=== PATIENT | female | born 1950 | race Caucasian/White ===

== ENCOUNTER → 2019-04-30 10:32 | Outpatient (BNVA) | payer MEDICARE, OTHER, SELFPAY | PROVIDERS: Family Provider Nurse Practitioner; PCP Nurse Practitioner; Visit Provider Nurse Practitioner | DX: I10 Essential (primary) hypertension (principal); E03.8 Other specified hypothyroidism | CPT/HCPCS: 80053; 80061; 84443 ==

== ENCOUNTER → 2019-10-22 08:34 | Outpatient (BNVA) | payer MEDICARE, OTHER, SELFPAY | PROVIDERS: Family Provider Nurse Practitioner; PCP Nurse Practitioner; Visit Provider Nurse Practitioner | DX: E03.8 Other specified hypothyroidism (principal); I10 Essential (primary) hypertension | CPT/HCPCS: 80053; 80061; 84443 ==

== ENCOUNTER → 2020-03-18 08:32 | Outpatient (BNVA) | payer MEDICARE, OTHER, SELFPAY | PROVIDERS: Family Provider Nurse Practitioner; PCP Nurse Practitioner; Visit Provider Nurse Practitioner | DX: E66.09 Other obesity due to excess calories (principal); Z68.36 Body mass index [BMI] 36.0-36.9, adult; E03.8 Other specified hypothyroidism; I10 Essential (primary) hypertension | CPT/HCPCS: 80053; 80061; 84443 ==

== ENCOUNTER → 2020-09-12 09:51 | Outpatient (BNVA) | payer MEDICARE, OTHER, SELFPAY | PROVIDERS: Family Provider Nurse Practitioner; PCP Nurse Practitioner; Visit Provider Nurse Practitioner | DX: E03.8 Other specified hypothyroidism (principal); I10 Essential (primary) hypertension | CPT/HCPCS: 80053; 80061; 84443 ==

== ENCOUNTER → 2020-09-16 08:35 | Outpatient (BNVA) | payer MEDICARE, OTHER, SELFPAY | PROVIDERS: Family Provider Nurse Practitioner; PCP Nurse Practitioner; Visit Provider Nurse Practitioner | DX: I10 Essential (primary) hypertension (principal); E03.8 Other specified hypothyroidism; M54.5 Low back pain; M79.605 Pain in left leg; E66.9 Obesity, unspecified | CPT/HCPCS: 81000 ==

== ENCOUNTER → 2021-03-16 08:13 | Outpatient (BNVA) | payer MEDICARE, OTHER, SELFPAY | PROVIDERS: Family Provider Nurse Practitioner; PCP Nurse Practitioner; Visit Provider Nurse Practitioner | DX: I10 Essential (primary) hypertension (principal); E03.8 Other specified hypothyroidism | CPT/HCPCS: 80053; 80061; 84443 ==

== ENCOUNTER → 2021-09-01 08:56 | Outpatient (BNVA) | payer MEDICARE, OTHER, SELFPAY | PROVIDERS: Family Provider Nurse Practitioner; PCP Nurse Practitioner; Visit Provider Nurse Practitioner | DX: E03.8 Other specified hypothyroidism (principal); I10 Essential (primary) hypertension | CPT/HCPCS: 80053; 80061; 84443 ==

== ENCOUNTER → 2022-02-24 08:16 | Outpatient (BNVA) | payer MEDICARE, OTHER, SELFPAY | PROVIDERS: Family Provider Nurse Practitioner; PCP Nurse Practitioner; Visit Provider Nurse Practitioner | DX: E03.8 Other specified hypothyroidism (principal); I10 Essential (primary) hypertension | CPT/HCPCS: 80053; 80061; 84443 ==

== ENCOUNTER → 2022-08-24 08:43 | Outpatient (BNVA) | payer MEDICARE, OTHER, SELFPAY | PROVIDERS: Family Provider Nurse Practitioner; PCP Nurse Practitioner; Visit Provider Nurse Practitioner | DX: I10 Essential (primary) hypertension (principal); E03.8 Other specified hypothyroidism | CPT/HCPCS: 80053; 80061; 84443 ==

== ENCOUNTER → 2023-02-14 08:49 | Outpatient (BNVA) | payer MEDICARE, OTHER, SELFPAY | PROVIDERS: Family Provider Nurse Practitioner; PCP Nurse Practitioner; Visit Provider Nurse Practitioner | DX: I10 Essential (primary) hypertension (principal); E03.8 Other specified hypothyroidism | CPT/HCPCS: 80053; 80061; 84443 ==

== ENCOUNTER → 2023-08-01 10:10 | Outpatient (BNVA) | payer MEDICARE, OTHER, SELFPAY | PROVIDERS: Family Provider Nurse Practitioner; PCP Nurse Practitioner; Visit Provider Nurse Practitioner | DX: I10 Essential (primary) hypertension (principal); E03.8 Other specified hypothyroidism | CPT/HCPCS: 80053; 80061; 84443 ==

== ENCOUNTER 2023-10-13 10:22 | Emergency (ER) | payer MEDICARE, OTHER, SELFPAY ==
[2023-10-13 10:40] VITALS: BP 160/99; PULSE 66; RESP 18; TEMP 36.6; O2SAT 96; BMI 34.0
--- NOTE | 2023-10-13 11:05 | CT_ITS ---
WS: [id number] CT HEAD TECHNIQUE: Noncontrast CT of the head obtained from the skullbase to the vertex. CLINICAL INFORMATION: trauma COMPARISON: None. DLP: 1401.[address] scans at [facility] use at least one of these dose optimization techniques: automated e xposure control; mA and/or kV adjustment per patient size (includes targeted exams where dose is matc hed to clinical indication); or iterative reconstruction. FINDINGS: No evidence of intracranial hemorrhage or mass effect. Ventricular system and basal cisterns are daly nt. Moderate small vessel changes with moderate parenchymal volume loss. No extra-axial fluid collect ions. No evidence of mass or mass effect. Vascular calcification. Few chronic lacunar infarcts in the RIGHT basal ganglia. Paranasal sinuses and mastoid air cells are well aerated. .Normal visualized soft tissues. Scleral ba nding RIGHT globe. CT/CT head wo con* [id number] IMPRESSION: 1. No evidence of intracranial hemorrhage or mass effect. 2. Moderate small vessel changes with moderate parenchymal volume loss worse i n the frontal lobes. 3. Few chronic lacunar infarcts in the RIGHT basal ganglia. 4. Vascular calcification. 5. No acute intracranial findings.
--- NOTE | 2023-10-13 11:06 | XR_ITS ---
WS: [id number] Exam: XR chest 1V portable [id number] Date/Time of Exam: 10/13/2023 11:11 AM Reason For Exam: dyspnea/cough The lungs are clear and fully expanded. Cardiomediastinal silhouette is unremarkable for technique. N o pleural effusions. Bony structures are intact. XR/XR chest 1V portable [id number] IMPRESSION: 1. No acute cardiopulmonary finding.
--- NOTE | 2023-10-13 11:08 | PC.PHAR ---
PT HAS [facility] AND GETS MEDS BY MAIL. PT DOES KNOW WHAT SHE TAKES.
--- NOTE | 2023-10-13 11:09 | CT_ITS ---
WS: [id number] CT CERVICAL TRAUMA TECHNIQUE: Noncontrast CT of the cervical spine with coronal and sagittal reformatted images. CLINICAL INFORMATION: trauma COMPARISON: None. DLP: 1401.[address] scans at [facility] use at least one of these dose optimization techniques: automated e xposure control; mA and/or kV adjustment per patient size (includes targeted exams where dose is matc hed to clinical indication); or iterative reconstruction. FINDINGS: Straightening of the normal cervical lordosis. Normal craniocervical junction. Normal C1-C2 articulat ion. Dens is normal in appearance. Normal occipital condyles. No high-grade spinal canal narrowing. N ormal C1 ring. No evidence of acute fracture or dislocation. Small disc osteophyte complex at C2-C3 a nd C3-C4. Mild central canal stenosis C3-C4. Normal prevertebral soft tissues. Multinodular thyroid. Largest nodule RIGHT thyroid measures 11 mm. Carotid bulb calcification. Mastoids air cells are well aerated. CT/CT cervical spin wo con* [id number] IMPRESSION: No evidence of acute fracture or dislocation.
[2023-10-13 11:21] VITALS: BP 160/99; PULSE 66; RESP 18; TEMP 36.6; O2SAT 96
--- NOTE | 2023-10-13 11:21 | ED_ITS ---
HPI - Weakness 2 General: Chief complaint: Weakness Stated complaint: fall, doctor referral Time Seen by Provider: 10/13/23 11:05 Source: patient Mode of arrival: ambulatory History of Present Illness: 72-year-old female With dizziness and we akness presents to the emergency room after falling approximately 1 week ago. Patient was outside watering her alvarez and states that she simply passed out. She has an abrasion on the right lateral forehead and is complaining of some discomfort to her left wrist. She reports stumbling while walking dizziness with some slight blurriness of her vision. She had no vomiting after the episode. She is complaining of some headache generally feeling groggy and some pain on the right side of her neck A few months prior she had a similar syncopal episode. She has a history of hypertension no history of any known coronary artery disease no significant strokes in the past. MD Complaint: generalized weakness Onset (ago): week(s) (1) Duration: constant Severity: moderate Quality: aching Relieving factors: none Exacerbating factors: none Associated symptoms: Reports headache(s); Denies chest pain, chills, confusion, melena, decreased appetite, diaphoresis, dysuria, easy bruising, fever(s), myalgias, nausea, rash, short of breath, syncope or vomiting Review of Systems 2 Const: Denies: fever(s), chills or diaphoresis Card: Denies: chest pain or syncope Resp: Denies: dyspnea GI: Denies: abdominal pain, nausea, vomiting or melena : Denies: dysuria, urinary frequency or urinary urgency Musc: Reports: neck pain; Denies: back pain Skin/Breast: Denies: rash Neuro: Reports: headache(s) and difficulty walking; Denies: confusion Kai/Lymph: Denies: easy bruising PFSH ED 2 PFSH: Medical History Enrolled in chronic care management Obesity (BMI 30-39.9) 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 Adult onset hypothyroidism Essential (primary) hypertension Surgical History History of section History of cataract surgery 4560-8062 History of retinal detachment right 2004 Family History Father Heart disease Social History Smoking and tobacco/nicotine status: never used tobacco/nicotine Second hand smoke exposure: No Alcohol intake: never Substance/Drug Use: never Adopted: No Caregiver/support person: No Lives independently: Yes Household members: none Housing: House Marital status: / service: No Current occupational status: retired Do you think of yourself as: Straight/Heterosexual Current gender identity: Female Physical Exam 2 Const: GENERAL APPEARANCE: cooperative and comfortable O RIENTATION/CONSCIOUSNESS: Yes awake, Yes oriented to person, Yes oriented to place and Yes oriented to time HENMT: COMMON NORMALS: normocephalic, atraumatic and hearing grossly normal bilaterally HEAD & SCALP: normocephalic and atraumatic Resp: COMMON NORMALS: normal respiratory effort, No retractions, No use of accessory muscles and clear to auscultation bilaterally AUSCULTATION: clear to auscultation bilaterally Cardio: COMMON NORMALS: regular rate, regular rhythm and No murmurs present (Cardio) RATE: regular rate RHYTHM: regular rhythm GI: COMMON NORMALS: Soft to palpation and No hepatosplenomegaly present A USCULTATION: Yes normoactive bowel sounds PALPATION: Yes Soft to palpation, No Tenderness to palpation present (GI), No Guarding due to palpation present (GI) and Yes No hepatosplenomegaly present Extremity: COMMON NORMALS: normal to inspection, capillary refill normal, no clubbing, cyanosis or edema, no calf tenderness and no pedal edema Neuro: SENSORIUM/ORIENTATION: Yes oriented to person, Yes oriented to place and Yes oriented to time Skin: COMMON NORMALS: no rashes or lesions noted GENERAL SKIN EXAM: no rashes or lesions noted Course 2 Vital Signs: Vital signs: Vital Signs Temperature 97.9 F 10/13/23 11:21 Pulse Rate 68 10/13/23 13:36 Respiratory Rate 18 10/13/23 13:36 Blood Pressure 158/94 10/13/23 13:36 Pulse Oximetry 94 10/13/23 13:36 Oxygen Delivery Me thod Room Air 10/13/23 11:21 MDM - Weakness Medical Decision Making Patient fell a week ago. She has a little drooping of her right I have a do believe that it is more functional tried and present for some time and may have been worsened by her fall she has been bruising above that I. The rest of her facial muscles are all symmetrical. At most send NIH score evaluation I can give her a 1 for ataxia. I think it may be related to postconcussive syndrome rather than a new stroke. She does have a pretty impressive amount of frontal lobe atrophy. Reviewed your case with Dr. Hutson she recommends in a case like this getting an EEG and having them follow-up with her. Additionally we will get an MRI of the head with and without contrast and echocardiogram and carotid to further evaluate her syncopal episodes. Reviewed findings with the patient and family. Return if she has further problems. Medical Records I reviewed the patient's medical records. Lab Data I reviewed the patient's lab results. 10/13/23 11:35 10/13/23 11:[address] 10/13/23 11:05 IMPRESSION: 1. No evidence of intracranial hemorrhage or mass effect. 2. Moderate small vessel changes with moderate parenchymal volume loss worse in the frontal lobes. 3. Few chronic lacunar infarcts in the RIGHT basal ganglia. 4. Vascular calcification. 5. No acute intracranial findings. Chest X-Ray 10/13/23 11:06 IMPRESSION: 1. No acute cardiopulmonary finding. Cervical Spine CT 10/13/23 11:09 IMPRESSION: No evidence of acute fracture or dislocation. Hand X-Ray 10/13/23 11:51 IMPRESSION: 1. No acute fracture. Mild degenerative changes. Wrist X-Ray 10/13/23 11:51 IMPRESSION: 1. No acute fracture. Laboratory Results WBC 5.32 10^3/uL (3.29-11.43) 10/13/23 11:35 RBC 4.30 10^6/uL (3.85-5.65) 10/13/23 11:35 Hgb 13.90 g/dL (11.27-16.99) 10/13/23 11:35 Hct 41.9 % (36-47) 10/13/23 11:35 MCV 97.4 fl (85-98) 10/13/23 11:35 MCH 32.3 pg (27-33) 10/13/23 11:35 MCHC 33.2 g/dL (30-55) 10/13/23 11:35 RDW 12.9 % (12.1-15.1) 10/13/23 11:35 Plt Count 226 10^3/cmm (157-399) 10/13/23 11:35 MPV 10.1 fL (7.4-10.4) 10/13/23 11:35 Neut % (Auto) 54.3 % 10/13/23 11:35 Lymph % (Auto) 32.3 % 10/13/23 11:35 [place] % (Auto) 8.8 % 10/13/23 11:35 Eos % (Auto) 3.6 % 10/13/23 11:35 Baso % (Auto) 0.8 % 10/13/23 11:35 Neut # (Auto) 2.89 10^3/uL (1.8-7.7) 10/13/23 11:35 Lymph # (Auto) 1.7 10^3/uL (0.8-4.8) 10/13/23 11:35 [place] # (Auto) 0.5 10^3/uL (0.2-0.9) 10/13/23 11:35 Eos # (Auto) 0.2 10^3/uL (0.0-0.8) 10/13/23 11:35 Baso # (Auto) 0.0 10^3/uL (0.0-0.1) 10/13/23 11:35 Nucleated RBC % (auto) 0 % 10/13/23 11:35 Nucleated RBCs # 0.0 /100WBC 10/13/23 11:35 Sodium 141 mmol/L (136-145) 10/13/23 11:35 Potassium 4.8 mmol/L (3.5-5.1) 10/13/23 11:35 Chloride 106 mmol/L (98-107) 10/13/23 11:35 Carbon Dioxide 27 mmol/L (22-29) 10/13/23 11:35 Anion Gap 12.8 (5-19) 10/13/23 11:35 BUN 20 mg/dL (8-23) 10/13/23 11:35 Creatinine 1.2 mg/dL (0.5-0.9) H 10/13/23 11:35 GFR Calculation Not Reportable 10/13/23 11:35 Glucose 88 mg/dL (65-115) 10/13/23 11:35 Calculated Osmolality 294 mOsm/kg (285-295) 10/13/23 11:35 Lactic Acid 0.9 mmol/L (0.5-2.2) 10/13/23 11:35 Calcium 8.8 mg/dL (8.5-10.5) 10/13/23 11:35 Total Bilirubin 0.5 mg/dL (0.15-1.2) 10/13/23 11:35 AST 17 U/L (0-32) 10/13/23 11:35 ALT 9 U/L (0-33) 10/13/23 11:35 Alkaline Phosphatase 97 U/L (35-105) 10/13/23 11:35 Total Protein 6.9 g/dL (6.6-8.7) 10/13/23 11:35 Albumin 3.2 g/dL (3.5-5.2) L 10/13/23 11:35 Globulin 3.7 g/dL (1.3-4.6) 10/13/23 11:35 Urine Color Yellow (Yellow) 10/13/23 12:49 Urine Appearance Clear (CLEAR) 10/13/23 12:49 Urine pH 6 (5-7) 10/13/23 12:49 Ur Specific [place] 1.010 (1.005-1.030) 10/13/23 12:49 Urine Protein Neg (Negative) 10/13/23 12:49 Urine Glucose (UA) Norm (Normal) 10/13/23 12:49 Urine Ketones Negative (Negative) 10/13/23 12:49 Urine Blood Neg (Negative) 10/13/23 12:49 Urine Nitrate Negative (Negative) 10/13/23 12:49 Urine Bilirubin Neg (Negative) 10/13/23 12:49 Urine Urobilinogen Norm mg/dL (Negative) 10/13/23 12:49 Ur Leukocyte Esterase Trace (Negative) H 10/13/23 12:49 Urine RBC None /hpf (0-2) 10/13/23 12:49 Urine WBC 0-4 /hpf (0-5) H 10/13/23 12:49 Ur Squamous Epith Cells None /hpf (0-5) 10/13/23 12:49 Ur Transition Epith Cell 0-4 /hpf 10/13/23 12:49 Amorphous Sediment Not Reportable 10/13/23 12:49 Urine Bacteria None /hpf (NONE) 10/13/23 12:49 Urine Mucus None /hpf 10/13/23 12:49 All radiology interpretation(s) finalized by discharge Discharge Plan Discharge Patient Disposition: Home Clinical Impression: Syncope, Fall, Dizziness Condition: Stable Prescriptions: New atorvastatin 40 mg tablet 40 mg PO DAILY Qty: 30 0RF No Action clonidine HCl 0.1 mg tablet 0.1 mg PO BID PRN (Reason: hypertensive emergency) Qty: 30 0RF amlodipine 5 mg tablet 5 mg PO DAILY 90 Days Qty: 90 1RF duloxetine [Cymbalta] 20 mg capsule,delayed release(DR/EC) 20 mg PO BID Qty: 180 1RF levothyroxine 50 mcg tablet 50 mcg PO DAILY 90 Days Qty: 90 1RF losartan 100 mg tablet 100 mg PO DAILY 90 Days Qty: 90 1RF Aspir-81 81 mg Tablet,Delayed Release (Dr/Ec) 81 mg PO DAILY Discharge Orders: Discharge ED (Routine); Ordered 10/13/23 Ordered By: Yordy Lopez Referrals: Lalit Benietz, WILLIAMSC [Primary Care Provider] - Discharge Diet: Usual diet Discharge Activity: Limit activity as instructed Patient Instructions: Opioid Safety, Pain Management Activity Restrictions/Additional Instructions: Thank you for choosing [facility] for your healthcare needs today. It is very important that you follow up as instructed or that you return to the Emergency Department should you have concerns or if your condition changes or worsens in any way. You were seen in the emergency room after a fall CT of your head shows chronic changes with no acute changes. Will set you up for an outpatient echocardiogram and carotid duplex additionally will set you up for an MRI of the head with and without contrast and follow-up with neurology. Recommend you continue taking baby aspirin daily we will also start you on atorvastatin 40 mg daily. Will set you up for follow-up with neurology. Coding Level of Care Code ED Disability Specialist for Vamshi Vasquez NIH stroke score NIHSS Level Of Consciousness - 1a: 0 Level Of Consciousness Questions - 1b: Both Correct Level Of Consciousness Commands - 1c: Both Correct Best Gaze - 2: Normal Visual [place] - 3: No Visual Loss Facial Palsy - 4: Normal Motor Arm Right - 5: No Drift Motor Arm Left - 5: No Drift Motor Leg Right - 6: No Drift Motor Leg Left - 6: No Drift Limb Ataxia - 7: Present In One Limb Sensory - 8: Normal Best Language - 9: No Aphasia Dysarthia - 10: Normal Extinction And Inattention - 11: 0 Score Total Score: 1
[2023-10-13 11:42] LABS: Basophils % 0.8 %; Eosinophils # 0.2 10^3/uL (0.0-0.8); Eosinophils % 3.6 %; Hematocrit 41.9 % (36-47); Lymphocytes # 1.7 10^3/uL (0.8-4.8); Lymphocytes % 32.3 %; Mean Corpuscular HGB Conc 33.2 g/dL (30-55); Mean Corpuscular Hemoglobin 32.3 pg (27-33); Mean Corpuscular Volume 97.4 fl (85-98); Mean Platelet Volume 10.1 fL (7.4-10.4); Monocytes # 0.5 10^3/uL (0.2-0.9); Monocytes % 8.8 %; Neutrophils # 2.89 10^3/uL (1.8-7.7); Neutrophils % 54.3 %; Nucleated Red Blood Cells % 0 %; Platelet Count 226 10^3/cmm (157-399); Red Cell Distribution Width 12.9 % (12.1-15.1); White Blood Count 5.32 10^3/uL (3.29-11.43)
--- NOTE | 2023-10-13 11:51 | XR_ITS ---
WS: [id number] Exam: XR wrist LT min 3V* [id number] Date/Time of Exam: 10/13/2023 11:52 AM Reason For Exam: trauma Comparison 10/13/2023. No fracture or dislocation. The joint is relatively well-maintained. Normal soft tissues. XR/XR wrist LT min 3V* [id number] IMPRESSION: 1. No acute fracture.
--- NOTE | 2023-10-13 11:51 | XR_ITS ---
WS: [id number] Exam: XR hand LT min 3V* [id number] Date/Time of Exam: 10/13/2023 11:52 AM Reason For Exam: trauma No acute fracture. Mild degenerative changes in the IP joints and CMC joint of the thumb. No soft tis keli foreign bodies. XR/XR hand LT min 3V* [id number] IMPRESSION: 1. No acute fracture. Mild degenerative changes.
[2023-10-13 11:58] LABS: Lactic Sepsis W/Reflex 0.9 mmol/L (0.5-2.2)
[2023-10-13 11:59] LABS: Alanine Aminotransferase 9 U/L (0-33); Albumin Level 3.2 g/dL (3.5-5.2); Alkaline Phosphatase 97 U/L (35-105); Anion Gap 12.8 (5-19); Aspartate Amino Transferase 17 U/L (0-32); Blood Urea Nitrogen 20 mg/dL (8-23); Calcium 8.8 mg/dL (8.5-10.5); Carbon Dioxide 27 mmol/L (22-29); Chloride 106 mmol/L (98-107); Globulin 3.7 g/dL (1.3-4.6); Glucose 88 mg/dL (65-115); Osmolality Calculated 294 mOsm/kg (285-295); Potassium 4.8 mmol/L (3.5-5.1); Sodium 141 mmol/L (136-145); Total Bilirubin 0.5 mg/dL (0.15-1.2); Total Protein 6.9 g/dL (6.6-8.7)
[2023-10-13 12:10] LABS: Creatinine Clr Calc Pharmacy 52.8862
[2023-10-13 13:06] LABS: Add Urine Microscopic? YES; Bilirubin Urine Neg (Negative); Blood Urine Neg (Negative); Glucose Urine UA Norm (Normal); Ketones Urine Negative (Negative); Leukocyte Esterase Urine Trace (Negative); Nitrate Urine Negative (Negative); Protein Urine Neg (Negative); Urine Appearance Clear (CLEAR); Urine Color Yellow (Yellow); Urobilinogen Urine Norm (Negative); pH Urine 6 (5-7)
[2023-10-13 13:16] LABS: Add Urine Culture? No; Transitional Epi Cells Urine 0-4 /hpf; WBC Urine 0-4 /hpf (0-5)
[2023-10-13 13:36] VITALS: BP 158/94; PULSE 68; RESP 18; O2SAT 94
== END 2023-10-13 13:24 | disposition home or self-care (01) ==
PROVIDERS: Emergency Provider Family Medicine; Family Provider Nurse Practitioner; PCP Nurse Practitioner
DX: R55 Syncope and collapse (principal); R42 Dizziness and giddiness; Z79.82 Long term (current) use of aspirin; I10 Essential (primary) hypertension
CPT/HCPCS: 36415; 70450; 71045; 72125; 73110; 73130; 80053; 81001; 83605; 85025; 99284

== ENCOUNTER 2023-11-02 07:30 | Outpatient (CLI) | payer MEDICARE, OTHER, SELFPAY ==
--- NOTE | 2023-11-02 07:14 | USCV_ITS ---
Judith Thomas Age: 72 Gender: F : 1950 Exam Date: 11/02/2023 07:39 Ordering Phys: Yordy Lopez DO Technologist: ERNESTO [place] [facility] [place]: Syncope Risk Factors: Previous Vascular Surgery: Right Brachial BP: / Left Brachial BP: / Right Left Velocity (cm/s) Spectral Plaque Velocity (cm/s) Spectral Plaque Syst/Diast Broadening Syst/Diast Broadening 72.90/ 14.90 Prox CCA 56.70 / 16.00 63.60/ 18.40 Mid CCA 71.60 / 21.60 81.50/ 25.80 Distal CCA 80.90 / 26.10 47.80/ 19.60 Prox ICA 41.10 / 13.60 54.40/ 23.40 Mid ICA 54.50 / 20.90 61.60/ 23.20 Distal ICA 73.50 / 28.40 100.00 ECA 73.50 0.80 ICA/CCA 0.90 Antegrade Vertebral Antegrade 19.70/ 7.00 cm/s 46.50/ 15.70 cm/s Tri Subclavian Tri 92.40 91.20 CONCLUSIONS Right ICA stenosis <50%. Mild atheromatous plaque right carotid bulb/ICA. Left ICA stenosis <50%. Mild atheromatous plaque left carotid bulb/ICA. Normal antegrade Doppler flow noted in the left vertebral artery. Normal antegrade Doppler flow noted in the right vertebral artery. Darrius Leslie MD (Electronically Signed) Final Date: 02 November 2023 08:55 S
== END 2023-11-02 07:31 | disposition home or self-care (01) ==
PROVIDERS: Family Provider Nurse Practitioner; PCP Nurse Practitioner; Visit Provider Family Medicine
DX: R55 Syncope and collapse (principal); I65.23 Occlusion and stenosis of bilateral carotid arteries
CPT/HCPCS: 93880

== ENCOUNTER 2023-11-04 14:10 | Outpatient (CLI) | payer MEDICARE, OTHER, SELFPAY ==
--- NOTE | 2023-11-04 15:15 | USCV_ITS ---
Judith Thomas Age: 72 Gender: F : 1950 Exam Date: 11/04/2023 14:57 Ordering Phys: Lalit Benitez Technologist: CT Exam Location: [facility] – [place] Indication: htn BP: / HR: Rhythm: Sinus Technical Quality: Adequate MEASUREMENTS (Male / Female) Normal Values FINDINGS Left Ventricle Normal left ventricular size, systolic function and wall thickness, with no regional wall motion abnormalities. Grade I/IV diastolic dysfunction (abnormal relaxation filling pattern), normal to mildly elevated filling pressures. Left ventricular ejection fraction is estimated at 60 %. Right Ventricle Normal right ventricular size and systolic function. Right Atrium The right atrium is normal in size. Left Atrium The left atrium is normal in size. Mitral Valve Structurally normal mitral valve without significant stenosis or prolapse. There is no mitral regurgitation. Aortic Valve Structurally normal trileaflet aortic valve. No aortic valve stenosis. Mild aortic valve regurgitation. Tricuspid Valve Structurally normal tricuspid valve without significant stenosis or regurgitation. Pulmonary artery systolic pressure is normal. Pulmonic Valve Pulmonic valve not well visualized. Trace pulmonary valve regurgitation. Pericardium Normal pericardium without effusion. Aorta Normal ascending aorta dimension. IVC The inferior vena cava appears normal. CONCLUSIONS Normal left ventricular size, systolic function and wall thickness, with no regional wall motion abnormalities. Grade I/IV diastolic dysfunction (abnormal relaxation filling pattern), normal to mildly elevated filling pressures. Left ventricular ejection fraction is estimated at 60 %. Structurally normal trileaflet aortic valve. No aortic valve stenosis. Mild aortic valve regurgitation. There are no prior echocardiogram studies to compare. Dr. Durga Mckeon MD (Electronically Signed) Final Date: 05 November 2023 08:45 S
== END 2023-11-04 14:11 | disposition home or self-care (01) ==
LOC: RAD 14:10
PROVIDERS: Family Provider Nurse Practitioner; PCP Nurse Practitioner; Visit Provider Nurse Practitioner
DX: I10 Essential (primary) hypertension (principal); I35.1 Nonrheumatic aortic (valve) insufficiency
CPT/HCPCS: 93306

== ENCOUNTER 2023-12-06 12:44 | Outpatient (CLI) | payer MEDICARE, OTHER, SELFPAY ==
--- NOTE | 2023-12-06 12:48 | MR_ITS ---
WS: [id number] MRI HEAD WITH CONTRAST TECHNIQUE: Sagittal T1, T2 axial, T2 axial FLAIR, axial susceptibility weighted imaging, axial diffus ion weighted images, and coronal T2 images were obtained. Pre and post-T1 axial and post T1 coronal i mages. ADC and FSPGR images. CLINICAL INFORMATION: LACUNAR INFARCTS COMPARISON: CT head 10/13/2023 FINDINGS: No evidence of restricted diffusion to suggest acute ischemia. Ventricular system and basilar cistern s are patent. No hemosiderin on the susceptibility weighted images. Moderate small vessel changes. Sm all vessel changes in the thomas. Moderate parenchymal volume loss. Normal posterior fossa. Normal vasc ular flow voids at the skull base. No extra-axial fluid collections. Innumerable tiny perivascular sp aces in the basal ganglia. Paranasal sinuses are well aerated. Mastoid air cells are well aerated. Normal posterior nasopharynx. Normal optic chiasm and pituitary infundibulum. Mild symmetric atrophy temporal lobes and hippocampa l formations. No abnormal gadolinium enhancement. Normal dural venous sinuses. MR/MR head wo/w con [id number] IMPRESSION: 1. No evidence of restricted diffusion to suggest acute ischemia. 2. Moderate small vessel changes with moderate parenchymal volume loss. 3. Normal tiny benign perivascular spaces in the basal ganglia. This correspon ds to the findings on the prior CT. 4. Small vessel changes in the thomas. 5. No hemosiderin on the susceptibility weighted images. 6. No abnormal gadolinium enhancement.
== END 2023-12-06 12:45 | disposition home or self-care (01) ==
LOC: RAD 12:44
PROVIDERS: Family Provider Nurse Practitioner; PCP Nurse Practitioner; Visit Provider Family Medicine
DX: I63.81 Other cerebral infarction due to occlusion or stenosis of small artery (principal); G31.89 Other specified degenerative diseases of nervous system; Q28.3 Other malformations of cerebral vessels
CPT/HCPCS: 70553; A9577

== ENCOUNTER → 2024-01-16 08:09 | Outpatient (BNVA) | payer MEDICARE, OTHER, SELFPAY | PROVIDERS: Family Provider Nurse Practitioner; PCP Nurse Practitioner; Visit Provider Nurse Practitioner | DX: I51.9 Heart disease, unspecified (principal); E03.8 Other specified hypothyroidism | CPT/HCPCS: 80053; 80061; 84443 ==

== ENCOUNTER → 2024-06-21 08:52 | Outpatient (BNVA) | payer MEDICARE, OTHER, SELFPAY | PROVIDERS: Family Provider Nurse Practitioner; PCP Nurse Practitioner; Visit Provider Nurse Practitioner | DX: I10 Essential (primary) hypertension (principal); E03.8 Other specified hypothyroidism; I51.9 Heart disease, unspecified | CPT/HCPCS: 80053; 80061; 84443 ==

== ENCOUNTER → 2025-01-07 14:45 | Outpatient (BNVA) | payer MEDICARE, OTHER, SELFPAY | PROVIDERS: Family Provider Nurse Practitioner; PCP Nurse Practitioner; Visit Provider Nurse Practitioner | DX: E55.9 Vitamin D deficiency, unspecified (principal); I10 Essential (primary) hypertension | CPT/HCPCS: 80053; 80061; 82306; 82607; 84439; 84443; 84481; 85025 ==

== ENCOUNTER → 2025-03-26 12:27 | Outpatient (BNVA) | payer MEDICARE, OTHER, SELFPAY | PROVIDERS: Family Provider Nurse Practitioner; PCP Nurse Practitioner; Referring Provider Nurse Practitioner; Visit Provider Internal Medicine Cardiovascular Disease | DX: R07.9 Chest pain, unspecified (principal); R94.31 Abnormal electrocardiogram [ECG] [EKG]; I45.89 Other specified conduction disorders; I49.8 Other specified cardiac arrhythmias | CPT/HCPCS: 93005 ==